=== PATIENT | female | born 1990 | race Hispanic/Latino ===

== ENCOUNTER 2016-08-12 04:37 | Emergency (ER) | payer MEDICAID ==
[2016-08-12 04:54] VITALS: BP 124/79; PULSE 100; RESP 18; TEMP 97.5; O2SAT 100
--- NOTE | 2016-08-12 05:04 | C.PDOC ---
History Of Present Illness Pt presents to ER c/o of right lower toothache and right facial swelling since yesterday. Pt also c.o of " swollen tonsils with painful swallowing". Pt denies fever, trauma. Took PO advil with some relief Time Seen by Provider: 08/12/16 04:44 Chief Complaint (Nursing): ENT Problem History Per: Patient History/Exam Limitations: no limitations Current Symptoms Are (Timing): Still Present Severity: Mild Quality: Positive for: Aching Past Medical History Vital Signs: Last Vital Signs Temp 97.5 F L 08/12/16 04:49 Pulse 100 H 08/12/16 04:49 Resp 18 08/12/16 05:16 BP 124/79 08/12/16 04:49 Pulse Ox 100 08/12/16 05:04 - Medical History PMH: No Chronic Diseases Family History: States: Unknown Family Hx - Social History Hx Tobacco Use: No Hx Alcohol Use: Yes Hx Substance Use: Yes - Immunization History Hx Tetanus Toxoid Vaccination: Yes Hx Influenza Vaccination: Yes Hx Pneumococcal Vaccination: Yes Review Of Systems Constitutional: Negative for: Fever ENT: Positive for: Throat Pain, Other (right toothache, facial swelling) Neurological: Negative for: Headache Physical Exam - Physical Exam Appears: Non-toxic, No Acute Distress, Other (appears drowsy , sleepy but alert to verbal stimuli, oriented x 3 ) Skin: Normal Color, Other (3 small tender indurated , erythematous pimple like bumps to right facial area, non fluctuant) Head: Atraumatic, Other (minimal swelling to right mandible area, no trismus, no deformity, no ecchymosis) Eye(s): bilateral: Normal Inspection Tongue: Normal Appearing, No Swelling Lips: Normal Appearing, No Swelling Teeth: Avulsed (to posterior lower and upper right molars) Gingiva: Erythema (right lower posterior), Tender (right lower - posterior), No Abscess Throat: Normal, No Erythema, No Exudate Neck: Normal, No Other (swelling) Cardiovascular: Rhythm Regular Respiratory: Normal Breath Sounds Neurological/Psych: Oriented x3 Gait: Steady ED Course And Treatment O2 Sat by Pulse Oximetry: 100 Progress Note: Motrin PO ordered. Pt advised medical clinic and dental clinic follow up. RX given Disposition Counseled Patient/Family Regarding: Diagnosis, Need For Followup - Disposition Disposition: HOME/ ROUTINE Disposition Time: 05:01 Condition: STABLE Additional Instructions: Please follow up in clinic Please fill and take antibiotic prescribed Return to ER if worse Prescriptions: Clindamycin [Cleocin] 300 mg PO QID #28 cap Ibuprofen [Motrin] 600 mg PO Q6H #20 tab Instructions: Dental Abscess (ED), Folliculitis (ED) - Clinical Impression Clinical Impression: Dental abscess, Folliculitis
== END 2016-08-12 05:23 | disposition home or self-care (01) ==
LOC: C.ER 04:37
DX: K04.7 Periapical abscess without sinus (principal); L73.9 Follicular disorder, unspecified